=== PATIENT | male | born 1980 | race Caucasian/White ===

== ENCOUNTER → 2017-07-16 | Outpatient (CLI) | payer BC ==
[~2017-07-16] VITALS: Ht 177.8 cm; Wt 116.7 kg
[2017-07-16 09:24] VITALS: BP 146/82; PULSE 86; Ht 177.8 cm; Wt 116.7 kg
== END | disposition home or self-care (01) ==
LOC: C.NEUR 08:42
PROVIDERS: ATTEND Internal Medicine Pulmonary Disease
DX: G47.33 Obstructive sleep apnea (adult) (pediatric) (principal); F45.8 Other somatoform disorders

== ENCOUNTER → 2017-07-28 | Outpatient (CLI) | payer BC ==
--- NOTE | 2017-07-29 06:44 | SPLIT NIGHT TECHNICIAN REPORT ---
[facility] Split Night Polysomnogram - Senior Web Services Developer Report Study date: 07/28/2017 Referring Physician: Dr. Ortega Name: EVERETT DENTON Senior Web Services Developer: BETH Slade. Date of : 1980 Height: 37 years, Height 5' 10" Sex: Male Weight: 257 lbs Age: 37 Neck Circum: 18 inches BMI: Medications: 36.87 NONE LISTED Patient History PATIENT HAS HISTORY OF LOW ENERGY, SNORING, GASPING FOR AIR, DAYTIME SLEEPINESS AND DEPRESSION. HE IS HERE TODAY FOR AN EVALUATION FOR PAUL. ESS = 12 RM 6 Parameters Monitored NPSG: E1-M2, E2-M1, Fp1-M2, Fp2-M1, F3-M2, F4-M2, F4-M1, C3-M2, C4-M2, C4-M1, O1-M2, O2-M2, O2-M1, T3-M2, T4-M1, P3-M2, P4-M1, CHIN1, CHIN2, HR, EKG, Legs, PFLOW, SNOR, FLOW, CFLOW, Tidal Volume, THOR, ABDO, SpO2, PLTH, CPRESS, ETCO2 Wave, ETCO2, pH SLEEP SUMMARY DATA DIAGNOSTIC TREATMENT Lights Out: 10:28:13 PM 1:08:13 AM Lights On: 1:01:13 AM 5:46:43 AM Total Recording Time (TRT): 153.5 min. 279.0 min. Total Sleep Time (TST): 142.5 min. 269.0 min. NREM Time: 142.5 min. 209.5 min. REM Time: 0.0 min. 59.5 min. Sleep Period Time (SPT): 148.0 min. 277.0 min. Sleep Efficiency (SE): 93 % 97 % Sleep Latency: 5.0 min. 1.5 min. Arousal Index: 42.9 4.2 PAP Treatment Levels: 5, 6, 7, 8, 10 * Optimal Pressure(s) SLEEP STAGING DATA DIAGNOSTIC TREATMENT Duration (min) TST % Duration (min) TST % Stage Wake: 10.5 min. -- 9.5 min. -- WASO: 5.5 min. -- 8.0 min. -- NREM: 142.5 min. 100 % 209.5 min. 78 % Stage N1: 11.5 min. 8 % 15.5 min. 6 % Stage N2: 130.5 min. 92 % 114.0 min. 42 % Stage N3: 0.5 min. 0 % 80.0 min. 30 % REM: 0.0 min. 0 % 59.5 min. 22 % POSITIONAL DATA Event Count Index Event Count Index Supine: 102 99 24 8.3 Supine NREM: 102 99.0 17 7.8 Supine REM: N/A N/A 7 10 Non-Supine: 99 73.6 0 0.0 Non-Supine NREM: 99 73.6 0 0.0 Non-Supine REM: N/A N/A 0 0.0 AROUSAL SUMMARY DATA: Event Count Index Event Count Index Apnea Arousals: 16 23.2 2 0.9 Hypopnea Arousals: 49 20.6 0 0.0 Snore Arousals: 29 12.2 7 1.6 PLM Arousals: 1 0.4 0 0.0 Non-Specific Arousals: 10 4.2 8 1.8 Total Arousals: 102 42.9 19 4.2 MYOCLONUS (PLM) Event Count Index Event Count Index PLM: 13 5.5 0 0.0 PLM AROUSAL: 1 0.4 0 0.0 PLM W/O AROUSAL 13 5.5 0 0.0 PLM W/RESP EVENT 0 0.0 0 0.0 MYOCLONUS (PLM) Event Count Index Event Count Index LM: 1 17.7 15 3.3 LM AROUSAL: 1 0.4 2 0.4 LM W/O AROUSAL LM W/RESP EVENT LM NON SPECIFIC 48 20.2 13 2.9 HEART RATE DATA DIAGNOSTIC TREATMENT Sleep (bpm): 89 85 REM (bpm): N/A 93 NREM (bpm): 86 93 Tachycardia Count: 0 0 Tachycardia Duration: 0.00 0 Bradycardia Count: 0 0 Bradycardia Duration: 0.00 0 DIAGNOSTIC PORTION TREATMENT PORTION RESPIRATORY DATA Event Count Index Event Count Index AHI: -- 84.6 -- 5.4 RDI: -- 84.6 -- 5 Obstructive Apnea: 54 22.7 2 0.4 Central Apnea: 0 0.0 2 0.4 Mixed Apnea: 1 0.4 0 0.0 Hypopnea: 146 61.5 20 4.5 RERA: 0 0.0 0 0.0 Total Apneas: 55 23.2 4 0.9 RESPIRATORY DATA REM NREM SLEEP REM NREM SLEEP Supine Position: Obstructive Apneas: N/A 54 54 0 2 2 Central Apneas: N/A 0 0 0 2 2 Mixed Apneas: N/A 1 1 0 0 0 Hypopneas: N/A 47 47 7 13 20 RERA N/A 0 0 0 0 0 Total Supine Events: N/A 102 102 7 17 24 Supine AHI: N/A 99.0 99 10 7.8 8.3 Supine RDI: N/A 99.0 99.0 10.1 7.8 8.3 REM NREM SLEEP REM NREM SLEEP Non-Supine Position: Obstructive Apneas: N/A 0 0 0 0 0 Central Apneas: N/A 0 0 0 0 0 Mixed Apneas: N/A 0 0 0 0 0 Hypopneas: N/A 99 99 0 0 0 RERA N/A 0 0 0 0 0 Total Supine Events: N/A 99 99 0 0 0 Supine AHI: N/A 73.6 73.6 0.0 0.0 0.0 Supine RDI: N/A 73.6 73.6 0.0 0.0 0.0 OXYGEN DESTAURATION DATA: Event Count Index Event Count Index REM Desaturations: N/A N/A 7 7.1 NREM Desaturations: 214 90.1 19 5.4 SNORE DATA DIAGNOSTIC TREATMENT Snore Time: 39.9 1:09:43 AM Snore TST%: 13 1 Snore Arousal Count: 29 7 Snore Arousal Index: 12.2 1.6 Desaturation Event Summary: Minimum %SpO2 Event Count Mean/Min/Max Duration(sec.) Desaturation Index % Time In Bed > 90 167 26.0 / 5.5 / 59.8 32.8 74.9 86 - 90 97 17.4 / 5.5 / 42.0 123.6 11.6 81 - 85 21 14.8 / 4.3 / 26.0 46.2 6.7 76 - 80 2 13.0 / 12.3 / 13.8 5.9 5.0 71 - 75 1 12.3 / 12.3 / 12.3 8.4 1.8 66 - 70 0 N/A 0.0 0.1 61 - 65 0 N/A 0.0 0.0 56 - 60 0 N/A 0.0 0.0 51 - 55 0 N/A 0.0 0.0 < 50 0 N/A 0.0 0.0 OXYGEN SATURATION DATA DIAGNOSTIC TREATMENT SpO2 Mean Sleep: 86 % 93 % SpO2 Mean REM: N/A % 93 % SpO2 Mean NREM: 86 % 93 % SpO2 Minimum Sleep: 69 % 84 % SpO2 Minimum REM: N/A % 84 % SpO2 Minimum NREM: 69 % 84 % Time Below 90% (TST): 84.6 1.9 Time Below 88% (TST): 67.4 0.5 Total REM NREM Awake <50% 0.0 min. 0.0 min. 0.0 min. 0.0 min. 51 - 60% 0.0 min. 0.0 min. 0.0 min. 0.0 min. 61 - 70% 0.3 min. 0.0 min. 0.3 min. 0.0 min. 71 - 80% 27.5 min. 0.0 min. 27.2 min. 0.3 min. 81 - 90% 74.4 min. 1.9 min. 70.7 min. 1.8 min. 91 - 100% 305.2 min. 52.6 min. 238.0 min. 14.7 min. Average 91 93 90 92 Minimum SpO2 69 84 69 72 Desaturation Event Index 33.9 7.1 39.7 18.0 # Desat. Events below 89% 219 2 215 2 Time(%) with Saturation below 89% 19.0 0.1 18.7 0.3 Time(min.) with Saturation below 89% 77.4 0.4 76.0 1.1 Recording Senior Web Services Developer Comments: Mr. Denton slept in the right, left and supine positions. Increased HR noted at times. Leg movements noted. No bruxism noted. Snoring was noted and scored as a 3 on a scale of 1 through 5. (0=no snoring, 5=snoring loud enough to be heard through a closed door or down the ramirez way) At 1:01 am Mr. Denton has met specific Split-Night criteria during the diagnostic portion of this study. CPAP was initiated at +5 CMH2O and up-titrated to an optimal level of +10 CMH2O, which nearly eliminated all respiratory events and snoring. A [employer] and [employer] size medium Simplus full face mask was used during titration Mr. Denton awoke to use the restroom 0 times during the night. Mr. Denton stated I slept as well as I do when I am in my own bed. The final report will be interpreted and signed by a sleep physician. The completed physician report will then be placed in the patient medical record. Therapy Event: Therapy (cm H20) 0 5 6 7 8 10 Total Time at Pressure (min.) 153.0 12.5 15.4 20.0 123.9 106.7 TST at Pressure (min.) 142.5 10.5 12.9 19.5 119.9 106.2 # Periods 1 1 1 1 1 1 Sleep Onset (min.) 5.0 1.5 0.0 0.0 0.0 0.0 REM Onset (min.) N/A N/A N/A 2.6 0.0 52.7 Sleep Efficiency % 93 84 83 97 96 99 Wakefulness (%) 6.9 16.0 16.2 2.5 3.2 0.5 Wakefulness (min.) 10.5 2.0 2.5 0.5 4.0 0.5 NREM 1 (%) 7.5 40.1 45.4 2.5 1.5 1.1 NREM 1 (min.) 11.5 5.0 7.0 0.5 1.8 1.2 NREM 2 (%) 85.3 43.9 38.4 20.5 25.0 63.3 NREM 2 (min.) 130.5 5.5 5.9 4.1 31.0 67.5 NREM 3 (%) 0.3 0.0 0.0 0.0 43.6 24.4 NREM 3 (min.) 0.5 0.0 0.0 0.0 54.0 26.0 REM (%) 0.0 0.0 0.0 74.5 26.7 10.8 REM (min.) 0.0 0.0 0.0 14.9 33.1 11.5 # Arousals 102 4 5 1 4 5 Arousal Index 42.9 22.9 23.2 3.1 2.0 2.8 # Snore 1,061 18 20 2 17 11 Snore Index 446.7 103.0 92.9 6.1 8.5 6.2 AHI 84.6 40.1 32.5 12.3 2.0 1.1 AHI Supine 99.0 40.1 32.5 12.3 10.0 1.1 AHI Non-Supine 73.6 N/A N/A N/A 0.0 N/A NREM AHI 84.6 40.1 32.5 0.0 1.4 0.6 REM AHI N/A N/A N/A 16.1 3.6 5.2 RDI 84.6 40.1 32.5 12.3 2.0 1.1 # Obstructive 54 0 2 0 0 0 # Central Ap 0 0 2 0 0 0 # Mixed 1 0 0 0 0 0 # Hypopneas 146 7 3 4 4 2 RERAS 0 0 0 0 0 0 Total Respiratory Events 201 7 7 4 4 2 Time Below SpO2 89.00% (min.) 75.6 0.0 0.2 0.4 0.1 0.1 Mean NREM SpO2 (%) 86 93 93 94 93 93 Mean REM SpO2 (%) N/A N/A N/A 92 93 94 Mean Sleep SpO2 (%) 86 93 93 93 93 93 Min NREM SpO2 (%) 69 89 84 91 87 86 Min REM SpO2 (%) N/A N/A N/A 84 90 89 Position Supine (min.) 61.8 10.5 12.9 19.5 23.9 106.2 Position Non-supine (min.) 80.7 0.0 0.0 0.0 96.0 0.0 LM Index Sleep 23.2 11.4 13.9 0.0 2.5 2.8 LM Index NREM 23.2 11.4 13.9 0.0 3.5 1.9 LM Index REM N/A N/A N/A 0.0 0.0 10.4 Mean Heart Rate (bpm) 89 89 89 93 83 84 Min Heart Rate (bpm) 52 80 78 79 62 65
--- NOTE | 2017-08-01 13:10 | Sleep Study ---
Sleep Study Report Date of Service: 07/28/2017 Sleep Study Report Clinical data: The patient is a 37-year-old male with a history of snoring, observed apneas, disturbed nocturnal sleep, and excessive daytime somnolence. His [place] sleepiness score is 12. This was an in-lab split night sleep study. Sleep architecture: The study was divided into a diagnostic and therapeutic portion, using nasal CPAP during the therapeutic portion. During the diagnostic portion of the study the total sleep period was 148 minutes. The total sleep time was 142.5 minutes. The sleep efficiency was normal at 93 percent. The sleep latency was 5 minutes. Sleep consisted of stage N1 8 percent, stage N2 92 percent, stage N3 0 percent, stage REM 0 percent. During the therapeutic portion of the study the total sleep period was 277 minutes. The total sleep time was 269 minutes. The sleep efficiency was high at 97 percent. The sleep latency was 1.5 minutes. Sleep consisted of stage N1 6 percent, stage N2 42 percent, stage N3 30 percent, stage REM 22 percent. Arousal data: During the diagnostic portion of the study the patient had 105 arousals including 16 apnea arousals, 49 hypopnea arousals, 29 snoring arousals, 1 PLM arousal, and 10 nonspecific arousals. The arousal index was elevated at 42.9. During the therapeutic portion of the study the patient had a total of 17 arousals including 2 apnea arousals, 7 snoring arousals, and 8 nonspecific arousals. The arousal index was 4.2. PLM data: During the diagnostic portion of the study the patient had 13 periodic limb movements for a PLM index of 5.5. There was 1 arousal associated with limb movements for a PLM arousal index of 0.4. During the therapeutic portion of the study there were no periodic limb movements. EKG: The underlying cardiac rhythm was normal sinus. The average heart rate during the diagnostic study was 89 per minute and during the treatment portion of the study the average heart rate was 85 per minute. Respiratory data: During the diagnostic portion of the study the patient had a total of 201 respiratory events including 54 obstructive apneas, 1 mixed apnea, and 146 hypopneas. Hypopneas were scored according to the 4 percent desaturation rule. The apnea-hypopnea index was severely elevated at 84.6. During the therapeutic portion of the study when the patient's respiratory events were treated with nasal CPAP up to a final pressure of 10 centimeters, the patient had a total of 24 respiratory events including 2 obstructive apneas , 2 central apneas, and 20 hypopneas. The apnea-hypopnea index was 5.4. At the final pressure of 10 centimeters the patient had an apnea-hypopnea index of 1.1. Oximetry data: During the diagnostic portion of the study the mean saturation was 86 percent. The minimum saturation was 69 percent. There was 67.4 minutes with saturations less than 88 percent. During the therapeutic portion of the study the mean saturation was 93 percent. The minimum saturation was 84 percent. There was 0.5 minutes with saturations less than 88 percent. Optometry Teacher comments: The patient slept on the right, left, and supine positions. Increased heart rate greater than 100 noted at times. Leg movements noted. No bruxism noted. Snoring was noted and scored as a 3 on a scale of 1 through 5. At 1:01 a.m. Mr. Justice met specific split night criteria during the diagnostic portion of this study. CPAP was initiated at 5 centimeters and up titrated to an optimal level of 10 centimeters which nearly eliminated all respiratory events and snoring. A [employer] size medium simplus fullface mask was used. The patient did not awaken to use the restroom during the night. Impressions: 1. Severe obstructive sleep apnea Comments: The patient has severe sleep apnea. In light of this a split study was done. He did very well with nasal CPAP therapy. The arousal index decreased from 42.9 down to 4.2. There was almost complete resolution of the sleep disordered breathing. His oxygenation which had been significantly decreased, normalized during CPAP treatment. Recommendations: 1. It is advised that the patient be started on nasal CPAP at 10 centimeters. 2. It is advised that he be ordered a [employer] Simplus full face mask size medium 3. If possible, the patient should avoid sleeping in the supine position. Typically there is more respiratory events and snoring while supine. 4. Weight loss is advised in light of the elevation of body mass index of 36.87. Copies To 1: Yevgeniy Ortega DO; Santi Anderson M.D.
== END | disposition home or self-care (01) ==
LOC: C.NEUR 21:00
PROVIDERS: ATTEND Internal Medicine Pulmonary Disease
DX: G47.33 Obstructive sleep apnea (adult) (pediatric) (principal)